=== PATIENT | male | born 1980 | race Hispanic/Latino ===

== ENCOUNTER 2021-01-31 21:37 | Emergency (ER) | payer OTHER ==
[~2021-01-31] VITALS: Ht 167.6 cm; Wt 74.8 kg
[2021-02-01] MEDS ORDERED: KETOROLAC 30 MG/ML 1ML VIAL IM ONE (01:35)
[2021-02-01] MEDS ORDERED: methocarbamoL 500 MG TAB PO ONE (01:35)
[2021-02-01] MEDS ORDERED: METH-1164 PO (01:43)
[2021-02-01 02:02] VITALS: BP 134/86
== END 2021-02-01 02:04 | disposition home or self-care (01) ==
LOC: M ED 21:37
DX: S23.3XXA Sprain of ligaments of thoracic spine, initial encounter (principal); X58.XXXA Exposure to other specified factors, initial encounter; Y92.9 Unspecified place or not applicable; Y93.9 Activity, unspecified; Y99.9 Unspecified external cause status; F17.200 Nicotine dependence, unspecified, uncomplicated; Z88.2 Allergy status to sulfonamides
CPT/HCPCS: 96372; 99283; J1885